=== PATIENT | male | born 1975 | race Two or more races ===

== ENCOUNTER 2018-05-26 08:19 | Outpatient (CLI) | payer MEDICAID ==
--- NOTE | 2018-05-26 11:02 | Ultrasound Report ---
Reason: UMBILICAL HERNIA,INGUINAL HERNIA,LEFT Procedure Date: 05/26/2018 Accession Number: [id number] / [id number] Procedure: US - Abdomen Limited CPT Code: FULL RESULT: EXAM: ABDOMEN ULTRASOUND LIMITED EXAM DATE: 05/26/2018 08:34 AM. CLINICAL HISTORY: Umbilical hernia, inguinal hernia, left. COMPARISON: None. TECHNIQUE: Real-time scanning was performed with static images obtained. FINDINGS: Focal soft tissue ultrasound is performed at 2 sites, the left lower quadrant inguinal region and the periumbilical region of the anterior abdominal wall near the midline. The umbilical region demonstrates a reducible hernia with a 1.1 cm neck which does not contain bowel. In the left lower quadrant is an indirect reducible umbilical hernia which passes through the sonographically 1.3 cm wide defect; no definite bowel content. IMPRESSION: Reducible periumbilical and indirect left inguinal hernias as described. RADIA
--- NOTE | 2018-05-26 11:02 | Ultrasound Report ---
Reason: UMBILICAL HERNIA,INGUINAL HERNIA,LEFT Procedure Date: 05/26/2018 Accession Number: [id number] / [id number] Procedure: US - Pelvic Limited or F/U CPT Code: FULL RESULT: EXAM: ABDOMEN ULTRASOUND LIMITED EXAM DATE: 05/26/2018 08:34 AM. CLINICAL HISTORY: Umbilical hernia, inguinal hernia, left. COMPARISON: None. TECHNIQUE: Real-time scanning was performed with static images obtained. FINDINGS: Focal soft tissue ultrasound is performed at 2 sites, the left lower quadrant inguinal region and the periumbilical region of the anterior abdominal wall near the midline. The umbilical region demonstrates a reducible hernia with a 1.1 cm neck which does not contain bowel. In the left lower quadrant is an indirect reducible umbilical hernia which passes through the sonographically 1.3 cm wide defect; no definite bowel content. IMPRESSION: Reducible periumbilical and indirect left inguinal hernias as described. RADIA
== END 2018-05-26 08:20 | disposition home or self-care (01) ==
LOC: DI 08:19
PROVIDERS: ATTEND Nurse Practitioner
DX: K42.9 Umbilical hernia without obstruction or gangrene (principal); K40.90 Unilateral inguinal hernia, without obstruction or gangrene, not specified as recurrent
CPT/HCPCS: 76705; 76857

== ENCOUNTER 2018-06-10 06:11 | Day surgery (SDC) | payer MEDICAID ==
[2018-06-10] MEDS ORDERED: LACTATED RINGERS 1,000 ML IV ONE ×2 (06:27→09:25)
[2018-06-10] MEDS ORDERED: ceFAZolin 2 GM/50 ML 2 GM/50 ML BAG IV ONE (06:44)
[2018-06-10] MEDS ORDERED: BUPIVACAINE 0.5% PF 30 ML VIAL ONE (07:13)
--- NOTE | 2018-06-10 07:17 | ANESTHESIA ---
Pre-Anesthesia VS, & Labs - Diagnosis L inguinal hernia/ Umbilical hernia - Procedure L inguinal hernia repair, umbilical hernia repair Vital Signs: Temp Pulse Resp BP Pulse Ox 36.7 C 79 12 131/80 H 97 06/10/18 06:41 06/10/18 06:41 06/10/18 06:41 06/10/18 06:41 06/10/18 06:41 Height 5 ft 8 in Weight (kg) 85.5 kg - NPO >8 hours Home Medications and Allergies Home Medications: Ambulatory Orders Ketoconazole 1 applic TP BID 06/06/18 Terbinafine HCl 250 mg PO DAILY 06/06/18 Ketoconazole 1 applic TP BID 06/06/18 Terbinafine HCl 250 mg PO DAILY 06/06/18 Allergies/Adverse Reactions: Allergies Allergy/AdvReac Type Severity Reaction Status Date / Time No Known Drug Allergies Allergy Verified 06/06/18 13:20 Anes History & Medical History - Anesthetic History Anesthesia Complications: reports: No previous complications Family history of Anesthesia Complications: Denies Family history of Malignant Hyperthermia: Denies - Medical History Cardiovascular: reports: None Pulmonary: reports: None Gastrointestinal: reports: None Urinary: reports: None Musculoskeletal: reports: None Endocrine/Autoimmune: reports: None Skin: reports: Other Psychosocial: reports: Alcohol, Cannabis - Surgical History Orthopedic: Spine surgery Exam General: Alert, Oriented x3, Cooperative Dental: Loose/Frag, Poor dentition (several broken/chipped at top 7,10) Mouth Openin Fingerbreadth Neck Mobility: Normal Mallampati classification: II Thyromental Distance: 4-6 cm Respiratory: Lungs clear, Normal breath sounds, No respiratory distress Cardiovascular: Regular rate Mental/Cognitive Status: Alert/Oriented X3, Normal for patient Plan Anesthesia Type: General Consent for Procedure(s) Verified and Reviewed: Yes Code Status: Attempt Resuscitation ASA classification: 2-Mild systemic disease Is this case an emergency?: No
[2018-06-10] MEDS ORDERED: ONDANSETRON 4 MG/2 ML VIAL IVP ONE (08:00)
[2018-06-10] MEDS ORDERED: GLYCOPYRROLATE 1 MG/5 ML VIAL IVP ONE (08:00)
[2018-06-10] MEDS ORDERED: LIDOCAINE-MPF 2% 5 ML VIAL IM ONE (08:00)
[2018-06-10] MEDS ORDERED: NEOSTIGMINE 1 MG/1 ML 10 ML MDV IVP ONE (08:00)
[2018-06-10] MEDS ORDERED: KETOROLAC 30 MG/ML VIAL IVP ONE (08:00)
[2018-06-10] MEDS ORDERED: DEXAMETHASONE 4 MG/ML VIAL IVP ONE (08:00)
[2018-06-10] MEDS ORDERED: MIDAZOLAM 2 MG/2 ML VIAL IVP ONE (08:00)
[2018-06-10] MEDS ORDERED: fentaNYL 100 MCG/2 ML VIAL IVP ONE (08:00)
[2018-06-10] MEDS ORDERED: ACETAMINOPHEN 1,000 MG/100 ML 100 ML IV ONE (08:00)
[2018-06-10] MEDS ORDERED: PROPOFOL 200 MG/20 ML VIAL IVP ONE (08:00)
[2018-06-10] MEDS ORDERED: BUPIVACAINE 0.5% PF 30 ML VIAL SUBQ ONE ×2 (08:07)
[2018-06-10] MEDS ORDERED: HYDROcod/ACETAM 5/325 MG TABLET PO PRN (09:24)
[2018-06-10] MEDS ORDERED: ONDANSETRON 4 MG/2 ML VIAL ONE (09:51)
[2018-06-10] MEDS: HYDROmorphone 0.5 MG/0.5 ML SYRINGE ONE ×2 (09:52→09:54)
--- NOTE | 2018-06-10 10:28 | OPERATIVE REPORT ---
DATE OF SERVICE: 06/10/2018 Physician: Sam Bass MD PREOPERATIVE DIAGNOSIS: Umbilical hernia and left inguinal hernia. POSTOPERATIVE DIAGNOSES 1. Umbilical hernia and left inguinal hernia. 2. Large cord lipoma. PROCEDURE PERFORMED: Laparoscopic transabdominal preperitoneal repair with Prolene mesh at the inguinal hernia, and primary closure at the umbilical hernia. INDICATIONS: The patient came to clinic complaining of significant discomfort from umbilical and inguinal hernia, requesting repair. DESCRIPTION OF PROCEDURE IN DETAIL: The risks and benefits were explained to the patient, and he agreed to the procedure. He was taken to the operating room and placed under general anesthesia and intubated. The abdomen was prepped and draped and timeout was performed, and everyone in the room agreed to the procedure. He had a Ruiz catheter placed, as well as preoperative antibiotics. Both arms were tucked. A 12 mm transumbilical incision was made over the umbilical hernia. This was carried down to the defect itself. The defect was less than a centimeter. The sac was excised, and then the hernia defect was opened for a small amount to allow for insertion of the Raisa trocar. The trocar was inserted and secured in place. The abdomen was insufflated to 15 mmHg. The abdomen was then generally inspected. A left inguinal hernia was seen. There was no indication of a right inguinal hernia. No other abnormalities were seen. A large lump was also noted tenting the peritoneum around the area of the hernia defect. This was later discovered to be a large cord lipoma. 3-4 cm cephalad to the internal ring, an incision was made using the LigaSure device from the umbilical fold over to the abdominal sidewall on the left side. The peritoneum was then dissected off the underlying structures. The cord structures were identified and preserved. The hernia sac was easily reduced. The large cord lipoma was resected using the LigaSure and sent to Pathology. Once the space was created to accommodate the mesh, the preformed Prolene mesh was inserted into the space and secured to the pubic tubercle with two absorbable tacks. The cut edge of the peritoneum was then brought back to its original position and secured using absorbable tacks on the superior margin. No tacks were placed below the shelving edge. The two 5 mm trocars were then removed under vision from the camera. The umbilical trocar was then removed, and the fascial layer closed using 0 Prolene. 10 mL of Marcaine was infused in all three incisions, and then they were closed using 4-0 Monocryl with Dermabond on the side incisions, and simply a Tegaderm and a piece of gauze in the umbilical incision. This terminated the procedure. The patient tolerated it well. He was extubated in the operating room and taken to recovery room in stable condition. Instrument, and lap counts were correct. The Ruiz was removed at the end of the case. ESTIMATED BLOOD LOSS: 10 mL. SPECIMEN: Cord lipoma. COMPLICATIONS: None. PLAN: For him to go home later today. TD: 06/10/2018 09:30 ANGELES
[2018-06-10 11:07] VITALS: BP 119/74
== END 2018-06-10 06:12 | disposition home or self-care (01) ==
LOC: SDS 06:11
PROVIDERS: ATTEND Surgery
PROC: 0VBG4ZZ Excision of Left Spermatic Cord, Percutaneous Endoscopic Approach (ICD-10-PCS; 2018-06-10)
PROC: 0YU64JZ Supplement Left Inguinal Region with Synthetic Substitute, Percutaneous Endoscopic Approach (ICD-10-PCS; principal; 2018-06-10 07:30)
DX: K40.90 Unilateral inguinal hernia, without obstruction or gangrene, not specified as recurrent (principal); K42.9 Umbilical hernia without obstruction or gangrene; D17.6 Benign lipomatous neoplasm of spermatic cord; Z72.89 Other problems related to lifestyle; Z87.891 Personal history of nicotine dependence
CPT/HCPCS: 49650; C1781; J0131; J0690; J1170; J7120

== ENCOUNTER 2018-08-25 08:00 | Outpatient (CLI) | payer MEDICAID ==
[2018-08-25 18:53] LABS: BASOPHILS # (AUTO) 0.1 10^3/uL (0.0-0.1); BASOPHILS % (AUTO) 1.1 %; EOSINOPHILS # (AUTO) 0.1 10^3/uL (0.0-0.7); EOSINOPHILS % (AUTO) 2.4 %; HGB - HEMOGLOBIN 14.2 g/dL (14.0-18.0); LYMPHOCYTES # (AUTO) 0.9 10^3/uL (1.5-3.5); LYMPHOCYTES % (AUTO) 19.7 %; MEAN CORPUSCULAR HEMOGLOBIN 29.6 pg (27.0-31.0); MEAN CORPUSCULAR VOLUME 89.4 fL (80.0-94.0); MEAN PLATELET VOLUME 8.2 fL (7.4-11.4); MONOCYTES # (AUTO) 0.3 10^3/uL (0.0-1.0); MONOCYTES % (AUTO) 6.7 %; NEUTROPHILS # (AUTO) 3.3 10^3/uL (1.5-6.6); NEUTROPHILS % (AUTO) 70.1 %; PLT - PLATELET COUNT 256 10^3/uL (130-450); RED BLOOD COUNT 4.81 10^6/uL (4.70-6.10); RED CELL DISTRIBUTION WIDTH 14.3 % (12.0-15.0); WHITE BLOOD COUNT 4.8 x10^3/uL (4.8-10.8)
[2018-08-25 19:14] LABS: ALBUMIN 4.5 g/dL (3.2-5.5); BILIRUBIN,DIRECT 0.2 mg/dL (0.1-0.5); BILIRUBIN,TOTAL 1.3 mg/dL (0.2-1.0); TOTAL PROTEIN 7.4 g/dL (6.7-8.2)
== END 2018-08-25 23:59 | disposition home or self-care (01) ==
LOC: LAB.WCP 08:00
PROVIDERS: ATTEND Nurse Practitioner
DX: Z51.81 Encounter for therapeutic drug level monitoring (principal)
CPT/HCPCS: 36415; 80076; 85025

== ENCOUNTER 2018-11-23 14:56 | Outpatient (CLI) | payer MEDICAID ==
--- NOTE | 2018-11-24 13:42 | XRAY Report ---
Reason: PAINFUL 3RD TOE LT Procedure Date: 11/23/2018 Accession Number: [id number] / [id number] Procedure: XR - Toe(s) LT CPT Code: FULL RESULT: EXAM: LEFT THIRD TOE RADIOGRAPHY EXAM DATE: 11/23/2018 03:24 PM. CLINICAL HISTORY: PAINFUL 3RD TOE LT. Patient reports a history of toe fracture. COMPARISON: None. TECHNIQUE: 3 views. FINDINGS: Bones: Normal. No fracture or bone lesion. Joints: Normal. No subluxations. Soft Tissues: Normal. No soft tissue swelling. IMPRESSION: Normal toe radiography. RADIA
== END 2018-11-23 14:57 | disposition home or self-care (01) ==
LOC: DI 14:56
PROVIDERS: ATTEND Podiatrist
DX: M79.675 Pain in left toe(s) (principal)
CPT/HCPCS: 73660

== ENCOUNTER 2020-10-15 15:20 | Outpatient (CLI) | payer MEDICAID ==
--- NOTE | 2020-10-15 15:32 | XRAY Report ---
PROCEDURE: Knee 3 View RT INDICATIONS: SPRAIN OF R KNEE TECHNIQUE: 3 views of the right knee(s) were acquired. COMPARISON: None. FINDINGS: Bones: No fractures or dislocations. No suspicious bony lesions. Soft tissues: No joint effusion. No suspicious soft tissue calcifications. IMPRESSION: No trauma found, no effusion or loose body suspected. Reviewed by: Sai Kaiser MD on 10/15/2020 3:31 PM PDT Approved by: Sai Kaiser MD on 10/15/2020 3:31 PM PDT Station ID: [id number]
== END 2020-10-15 23:59 | disposition home or self-care (01) ==
LOC: DI.N 15:20
PROVIDERS: ATTEND Physician Assistant Medical
DX: S83.8X1A Sprain of other specified parts of right knee, initial encounter (principal)

== ENCOUNTER 2022-04-29 15:22 | Outpatient (CLI) | payer MEDICAID ==
--- NOTE | 2022-04-29 18:03 | XRAY Report ---
PROCEDURE: Ribs w/PA Chest LT INDICATIONS: MASS TECHNIQUE: 2 views of the left ribs were acquired, along with a single view chest. COMPARISON: None FINDINGS: Surgical changes and devices: None. Bones and chest wall: No fractures or dislocations. No suspicious bony lesions. Overlying soft tis sues appear unremarkable. Lungs and pleura: No pleural effusions or pneumothorax. Lungs appear clear. Mediastinum: Mediastinal contours appear normal. Heart size is normal. IMPRESSION: No acute cardiopulmonary findings. No displaced rib fractures. Reviewed by: Karine Ocasio MD on 04/29/2022 6:02 PM PST Approved by: Karine Ocasio MD on 04/29/2022 6:02 PM [facility] Station ID: [id number]
== END 2022-04-29 15:23 | disposition home or self-care (01) ==
LOC: DI 15:22
PROVIDERS: ATTEND Physician Assistant
DX: R22.9 Localized swelling, mass and lump, unspecified (principal)

== ENCOUNTER 2022-06-04 19:43 | Outpatient (CLI) | payer MEDICAID ==
--- NOTE | 2022-06-05 10:15 | Ultrasound Report ---
PROCEDURE: Chest INDICATIONS: MASS TECHNIQUE: Real-time scanning of the chest was performed, with Doppler evaluation. COMPARISON: None. FINDINGS: Ultrasound of the inferior, anterior left hemithorax demonstrates a partially encapsulated, mobile, f at-containing mass measuring 4.9 x 1 x 2.9 cm. Findings most consistent with a lipoma. 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 Reviewed by: Dominguez Valentino on 06/05/2022 10:14 AM [facility] Approved by: Dominguez Valentino on 06/05/2022 10:14 AM [facility] Station ID: [id number]
== END 2022-06-04 19:44 | disposition home or self-care (01) ==
LOC: DI 19:43
PROVIDERS: ATTEND Physician Assistant
DX: D17.1 Benign lipomatous neoplasm of skin and subcutaneous tissue of trunk (principal)

== ENCOUNTER 2022-06-24 10:34 | Outpatient (CLI) | payer MEDICAID ==
[2022-06-24 10:44] LABS: BASOPHILS # (AUTO) 0.1 10^3/uL (0.0-0.1); BASOPHILS % (AUTO) 1.3 %; EOSINOPHILS # (AUTO) 0.1 10^3/uL (0.0-0.7); EOSINOPHILS % (AUTO) 3.1 %; HCT - HEMATOCRIT 42.1 % (42.0-52.0); HGB - HEMOGLOBIN 13.6 g/dL (14.0-18.0); LYMPHOCYTES # (AUTO) 1.1 10^3/uL (1.5-3.5); LYMPHOCYTES % (AUTO) 29.1 %; MEAN CORPUSCULAR HEMOGLOBIN 29.1 pg (27.0-31.0); MEAN CORPUSCULAR HGB CONC 32.3 g/dL (32.0-36.0); MEAN CORPUSCULAR VOLUME 90.1 fL (80.0-94.0); MEAN PLATELET VOLUME 8.9 fL (7.4-11.4); MONOCYTES # (AUTO) 0.3 10^3/uL (0.0-1.0); MONOCYTES % (AUTO) 6.9 %; NEUTROPHILS # (AUTO) 2.3 10^3/uL (1.5-6.6); NEUTROPHILS % (AUTO) 59.3 %; PLT - PLATELET COUNT 253 10^3/uL (130-450); RED BLOOD COUNT 4.67 10^6/uL (4.70-6.10); RED CELL DISTRIBUTION WIDTH 12.7 % (12.0-15.0); WHITE BLOOD COUNT 3.9 x10^3/uL (4.8-10.8)
[2022-06-24 11:02] LABS: ALBUMIN 4.2 g/dL (3.2-5.5); ALBUMIN/GLOBULIN RATIO 1.4 (1.0-2.2); ALKALINE PHOSPHATASE 50 IU/L (42-121); ALT ALANINE AMINOTRANSFERASE 23 IU/L (10-60); AST ASPARTATE AMINOTRANSFERASE 21 IU/L (10-42); BILIRUBIN,TOTAL 0.8 mg/dL (0.2-1.0); BUN - BLOOD UREA NITROGEN 17 mg/dL (6-20); CARBON DIOXIDE - CO2 28 mmol/L (21-32); CHLORIDE 106 mmol/L (101-111); CHOL/HDL RATIO 2.9 (<5.0); CHOLESTEROL 184 mg/dL; CREATININE 0.9 mg/dL (0.6-1.2); GFR - MDRD 91 (>89); GLUCOSE 107 mg/dL (70-100); HDL CHOLESTEROL 63 mg/dL; LDL CHOLESTEROL,CALCULATED 111 mg/dL; LDL/HDL RATIO 1.8 (<3.6); POTASSIUM 4.9 mmol/L (3.5-5.0); SODIUM 138 mmol/L (135-145); TOTAL PROTEIN 7.3 g/dL (6.7-8.2); TRIGLYCERIDES 50 mg/dL; VLDL CHOLESTEROL 10 mg/dL
== END 2022-06-24 10:35 | disposition home or self-care (01) ==
LOC: LAB 10:34
PROVIDERS: ATTEND Physician Assistant
DX: Z00.00 Encounter for general adult medical examination without abnormal findings (principal); Z13.220 Encounter for screening for lipoid disorders
CPT/HCPCS: 36415; 80053; 80061; 83721; 85025

== ENCOUNTER 2022-07-31 12:28 | Day surgery (SDC) | payer MEDICAID ==
--- NOTE | 2022-07-31 12:33 | ANESTHESIA ---
Pre-Anesthesia VS, & Labs - Diagnosis Lipoma, L anterior chest wall - Procedure excision lipoma, anterior chest wall Height: 5 ft 8 in - NPO >8 hours - Lab Results Lab results reviewed: Yes Home Medications and Allergies Allergies/Adverse Reactions: Allergies Allergy/AdvReac Type Severity Reaction Status Date / Time No Known Drug Allergies Allergy Verified 06/06/18 13:20 Anes History & Medical History - Anesthetic History Anesthesia Complications: reports: No previous complications Family history of Anesthesia Complications: Denies Family history of Malignant Hyperthermia: Denies - Medical History Cardiovascular: reports: None Pulmonary: reports: None Gastrointestinal: reports: None Urinary: reports: None Musculoskeletal: reports: None Endocrine/Autoimmune: reports: None Skin: reports: Other - Surgical History General: reports: Other (inguinal hernia) Orthopedic: reports: Spine surgery Exam General: Alert, Oriented x3, Cooperative Dental: Loose/Frag, Partials Upper Mouth Openin Fingerbreadth Neck Mobility: Normal Mallampati classification: II Thyromental Distance: 4-6 cm Respiratory: Lungs clear, Normal breath sounds, No respiratory distress Cardiovascular: Regular rate Neurological: Normal speech Mental/Cognitive Status: Alert/Oriented X3, Normal for patient Cognitive Status: Within normal limits Plan Anesthesia Type: General Consent for Procedure(s) Verified and Reviewed: Yes Code Status: Attempt Resuscitation ASA classification: 2-Mild systemic disease Is this case an emergency?: No
[2022-07-31] MEDS ORDERED: LACTATED RINGERS 1,000 ML IV ONE ×2 (12:54→15:10)
[2022-07-31] MEDS ORDERED: HYDROmorphone 0.5 MG/0.5 ML SYRINGE IVP PRN ×2 (13:07→15:12)
[2022-07-31] MEDS ORDERED: ePHEDrine 50 MG/ML VIAL IVP PRN (13:07)
[2022-07-31] MEDS ORDERED: NALOXONE 0.4 MG/ML VIAL IVP PRN (13:07)
[2022-07-31] MEDS ORDERED: MORPHINE 2 MG/ML CARPUJECT IVP PRN (13:07)
[2022-07-31] MEDS ORDERED: ATROPINE ABBOJECT 1 MG/10 ML SYRINGE IVP PRN (13:07)
[2022-07-31] MEDS ORDERED: METOCLOPRAMIDE 10 MG/2 ML VIAL IVP PRN (13:07)
[2022-07-31] MEDS ORDERED: ONDANSETRON 4 MG/2 ML VIAL IVP PRN (13:07)
[2022-07-31] MEDS ORDERED: BUPIVACAINE 0.25% PF 30 ML VIAL ONE (13:12)
[2022-07-31] MEDS ORDERED: fentaNYL 100 MCG/2 ML VIAL ONE ×2 (13:28→15:30)
[2022-07-31] MEDS ORDERED: MIDAZOLAM 2 MG/2 ML VIAL ONE (13:28)
[2022-07-31] MEDS ORDERED: PROPOFOL 200 MG/20 ML VIAL IVP ONE (13:29)
[2022-07-31] MEDS ORDERED: LIDOCAINE-PF 2% 10 ML AMP SUBQ ONE (13:29)
[2022-07-31] MEDS ORDERED: LACTATED RINGERS 1,000 ML IV SCH (14:00)
[2022-07-31] MEDS ORDERED: DEXAMETHASONE 4 MG/ML VIAL ONE (14:35)
[2022-07-31] MEDS ORDERED: ONDANSETRON 4 MG/2 ML VIAL ONE (14:35)
[2022-07-31] MEDS ORDERED: BUPIVACAINE 0.25% PF 30 ML VIAL SUBQ ONE ×2 (14:42→14:54)
[2022-07-31] MEDS ORDERED: HYDROcod/ACETAM 5/325 MG TABLET PO PRN (15:12)
--- NOTE | 2022-07-31 15:17 | OPERATIVE REPORT ---
Operative Report - General Procedure Date: 07/31/22 Planned Procedure: excision left lower chest wall intramuscular lipoma Pre-Op Diagnosis: 6 cm chest intramuscular lipoma Procedure Performed: excision 6 cm intramusclar chest wall lipoma 4 cm intermediate repair Post Op Diagnosis: same - Procedure Note Primary Surgeon: ortega arzate Anesthesia Technique: General LMA, Local Pathology: lipoma sent permanent Estimated Blood Loss (mL): 2 Drain/Tube Type: Other (none) Indications: painful chest wall tumor Findings: as above Complications: none - Other Other Information/Narrative: The patient was properly identified brought to the operating room and placed in supine position. Sequential compression devices were placed. Laryngeal mask anesthesia was induced. He was prepped and draped in a sterile fashion. Antibiotics were not given. Local anesthetic was given. A 4-4 and half centimeter incision was made in the direction of Arjun's lines directly over the palpable mass. Dissection proceeded with cutting current. The mass was below fascia and intramuscular. The fascia was opened with cautery. Musculature was spread in the direction of its fibers down to the fatty tissue mass. Fatty tissue mass was mobilized with blunt retraction and cutting current cautery. It was removed in its entirety. Hemostasis was assured. Fascia was closed with a running 2-0 Vicryl suture. The cutaneous tissue was closed with interrupted 3-0 Vicryl suture. Buried interrupted subdermal 3-0 Vicryl sutures were then placed. Skin was closed with a running 4-0 Monocryl subcuticular suture. Steri-Strips and dressing were applied. Tolerated the procedure well was awakened and brought to recovery in good condition.
[2022-07-31] MEDS: fentaNYL 100 MCG/2 ML VIAL IVP PRN ×2 (15:29→15:38)
--- NOTE | 2022-07-31 15:43 | ANESTHESIA POST OP EVALUATION ---
Anesthesia Post Eval - Post Anesthesia Eval Vitals: Last Vital Signs Temp 36.2 C L 07/31/22 15:31 Pulse 71 07/31/22 15:31 Resp 12 07/31/22 15:31 BP 112/81 H 07/31/22 15:31 Pulse Ox 97 07/31/22 15:31 O2 Flow Rate CV Function Including HR & BP: Stable Pain Control: Satisfactory Nausea & Vomiting: Negative Mental Status: Baseline Respiratory Status: Airway Patent Hydration Status: Satisfactory Anesthesia Complications: None
[2022-07-31 16:26] VITALS: BP 104/74
== END 2022-07-31 12:29 | disposition home or self-care (01) ==
LOC: SDS 12:28
PROVIDERS: ATTEND Surgery
PROC: 0KBJ0ZZ Excision of Left Thorax Muscle, Open Approach (ICD-10-PCS; principal; 2022-07-31 14:00)
DX: D17.9 Benign lipomatous neoplasm, unspecified (principal)
CPT/HCPCS: 21556; J7120